=== PATIENT | female | born 2005 | race Caucasian/White ===

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

== ENCOUNTER 2025-08-26 10:43 | Outpatient (REF) | payer BC, SELFPAY ==
[2025-08-26 16:13] LABS: Appearance Urine Clear; Glucose Urine UA Negative (Negative); PH 8.5 (5.0-9.0); Specific Gravity - Urine 1.020 (1.005-1.025); UMIC TRIGGER UACC YES
[2025-08-26 16:16] LABS: UACC Culture Trigger YES
[2025-08-26 17:22] LABS: Bacterial Vaginosis PCR NEGATIVE (Negative); Candida Group PCR NOT DETECTED (Not Detect); Candida glab krusei PCR NOT DETECTED (Not Detect); Trichomonas vaginalis PCR NOT DETECTED (Not Detect)
[2025-08-26 17:55] LABS: CT PCR NOT DETECTED (Not Detect.); NG PCR NOT DETECTED (Not Detect.)
== END 2025-08-26 10:44 | disposition home or self-care (01) ==
LOC: HO.LAB 10:43
PROVIDERS: PCP Nurse Practitioner Primary Care; Visit Provider Nurse Practitioner Family
DX: N76.0 Acute vaginitis (principal); Z20.2 Contact with and (suspected) exposure to infections with a predominantly sexual mode of transmission
CPT/HCPCS: 81001; 81003; 81515; 87086; 87491; 87591

== ENCOUNTER 2025-08-26 10:43 | Outpatient (AMB) | payer BC, SELFPAY ==
[2025-08-26 11:51] VITALS: BP 104/60; PULSE 85; TEMP 36.4; O2SAT 94; BMI 23.0
--- NOTE | 2025-08-26 11:51 | MHC.OFFWIV ---
Intake Vital Signs 08/26/25 11:51 Height 5 ft 5 in Weight 138 lb BMI 23.0 BP 104/60 Blood Pressure Location Rt brachial Position Sitting Pulse 85 Pulse Source Pulse Oximeter Temp 97.5 F Temp Source Oral Pulse Oximetry (%) 94 Oxygen Delivery Method Room Air Intake Visit Reasons: ep possible uti Intake Note: pt presents with changes to menses, vaginal dryness, burning with voiding, bladder pressure, discomfort with walking. negative test at doctors office last week. Patient Tobacco Use Status: Former Tobacco user Allergies amoxicillin Allergy (Mild, Verified 08/26/25 12:01) hives doxycycline Allergy (Mild, Verified 08/26/25 12:01) Nausea clavulanic acid (From Augmentin) Adverse Reaction (Mild, Verified 08/26/25 12:02) Hives Medication List - Last Reconciled 08/26/25 by Emilia Angelo NP cetirizine 10 mg PO DAILY PRN clotrimazole-betamethasone 1-0.05 % 1 appl topical BID 2 weeks dextroamphetamine-amphetamine 15 mg ER 25 mg PO DAILY@0900 dextroamphetamine-amphetamine 20 mg 1 tab PO DAILY PRN fluoxetine 10 mg PO DAILY gabapentin orally 300mg am, 600mg pm; hydroxyzine HCl 25 mg PO TID PRN levonorgestrel-ethinyl estrad 0.15 mg-30 mcg (91) (Introvale) 1 tab PO DAILY lorazepam 0.5 mg PO BEDTIME omeprazole 20 mg PO ONCE potassium chloride ER 30 mEq PO BID rizatriptan mg PO sennosides (senna) 8.6 mg PO DAILY PRN trazodone 25 mg PO BEDTIME PRN tretinoin 0.05% appl topical Q OTHER DAY PRN Do you need a note to return to daycare/school/sports/work: Yes HPI HPI Comments History of Present Illness Details 20 y/o Female patient who presents to the walk in clinic with c/o UTI symptoms for about a week now. Reports Vaginal burning, Dysuria, Vaginal itching and Bladder pressure. She is due to have her Menses this week - but late. She is sexually active with a Male partner sometimes condoms. She tested Negative last week at her PCP visit. She just started her SHANTI Yesterday (Tuesday) and has not sexual encounter for 1 week now. 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 [facility] Medical History (Updated 08/26/25 @ 12:47 by Emilia Angelo NP) Vaginitis and vulvovaginitis MDD (major depressive disorder), recurrent episode, moderate Anorexia nervosa, binge eating/purging type Bulimia nervosa, purging type Small fiber neuropathy Raynauds disease Gastroparesis IBS (irritable bowel syndrome) MDD (major depressive disorder) Social History Household Members: Family Housing: House Do you presently have visiting nurse or other home services: No Patient Tobacco Use Status: Former Tobacco user Substance Use Type: Marijuana Advance Directives Date on File: 02/15/24 service: No Review of Systems Const All systems reviewed & are unremarkable except as noted in HPI and below Physical Exam Vital Signs: Last Vital Signs Temp 97.5 F 08/26/25 11:51 Pulse 85 08/26/25 11:51 BP 104/60 08/26/25 11:51 Pulse Ox 94 08/26/25 11:51 Oxygen Delivery Method Room Air 08/26/25 11:51 BMI result Body Mass Index 23.0 Const General: no acute distress Nutritional Appearance: thin Orientation/consciousness: patient oriented x3 General: Yes no CVA tenderness External Female Exam: erythema and externally tender Speculum Exam - Vagina: normal vaginal discharge and tenderness Speculum Exam - Cervix: Cervical os open, Nulliparous cervix present and nontender Bimanual exam- vagina & uterus: No Cervical tenderness present OB/external & speculum: Cervical os open Back/Spine/Pelvis Back: no CVA tenderness Neuro General: patient oriented x3, gait normal and moves all extremities Psych Speech and movement: Normal speech and movement present Results AMB Urinalysis, Automated UA Leukoctes 15 Carlos/uL Last Edit by Navjot Cat CMA on 08/26/25 12:25 UA Nitrite Negative Last Edit by Navjot Cat CMA on 08/26/25 12:25 UA Urobilinogen 0.2 mg/dL Last Edit by Navjot Cat CMA on 08/26/25 12:25 UA Protein 0 mg/dL Last Edit by Navjot Cat CMA on 08/26/25 12:25 UA pH 8.0 Last Edit by Navjot Cat CMA on 08/26/25 12:25 UA Blood 10 Diomedes/uL Last Edit by Navjot Cat CMA on 08/26/25 12:25 UA Specific [place] 1.010 Last Edit by Navjot Cat CMA on 08/26/25 12:25 UA Ketone Negative Last Edit by Navjot Cat CMA on 08/26/25 12:25 UA Bilirubin 0 mg/dL Last Edit by Navjot Cat CMA on 08/26/25 12:25 UA Glucose 0 mg/dL Last Edit by Navjot Cat CMA on 08/26/25 12:25 Results Reviewed Results Reviewed: Laboratory Last Values Urine pH (Auto) 8.0 08/26/25 12:04 Specific [place] (Auto) 1.010 08/26/25 12:04 Urine Protein (Auto) 0 mg/dL 08/26/25 12:04 Glucose (UA)(Auto) 0 mg/dL 08/26/25 12:04 Urine Ketones (Auto) Negative 08/26/25 12:04 Urine Blood (Auto) 10 Diomedes/uL 08/26/25 12:04 Urine Nitrite (Auto) Negative 08/26/25 12:04 Urine Bilirubin (Auto) 0 mg/dL 08/26/25 12:04 Urine Urobilinogen (Auto) 0.2 mg/dL 08/26/25 12:04 Leukocyte Esterase (Auto) 15 Carlos/uL 08/26/25 12:04 Assessment & Plan Assessment & Plan (1) Vaginitis and vulvovaginitis: Code(s): N76.0 - Acute vaginitis Plan: Urinalysis + 15 LEUK , Negative NIT and Positive Blood. Will send Urine for C&S. There is Redness and irritation externally vaginal skin - Patient wears Panty Liners due to Urine leakage. Ordered Cream to be used on the Outside Vagina. Ordered NG/CT and bateria vaginal Panel. Will Hold Tx for now Until Results return. Orders: Orders CT NG by PCR Vag/Cerv Today N76.0 - Acute vaginitis Bacterial Vaginosis Panel Today N76.0 - Acute vaginitis UA CC w/rflx Micro + Cult Today N76.0 - Acute vaginitis AMB Urinalysis Automated Today Z13.9 - Encounter for screening, unspecified Medications: New clotrimazole-betamethasone 1-0.05 % 1 appl topical BID 15 grams 1RF 2 weeks N76.0 - Acute vaginitis Coding Level of Care Code Est Pt Level 4 (12620) Diagnoses Vaginitis and vulvovaginitis N76.0 Time Spent (min) 20
--- OUTSIDE RECORDS SUMMARY | 2025-08-26 12:51 | XMS_ITS | Clinical Summary ---
Author Organization [facility] Address [address] [place] [address] Phone Care Team Providers Care Utilities Service Investigator Name Role Phone Navjot Barrett Primary Care Provider [phone] Navjot Barrett Unavailable Social History Tobacco Use Types Packs/Day Years Used Date Smoking Tobacco: Never Assessed Comments Unknown Sex and Gender Information Value Date Recorded Sex Assigned at Not on file Legal Sex Female 3:57 AM EDT Gender Identity Not on file Sexual Orientation Not on file Last Filed Vital Signs Vital Sign Reading Time Taken Comments Blood Pressure 95/61 01/31/2024 4:04 AM EDT Pulse 64 01/31/2024 4:04 AM EDT Temperature - - Respiratory Rate 16 01/31/2024 4:04 AM EDT Oxygen Saturation 100% 01/31/2024 4:04 AM EDT Inhaled Oxygen Concentration - - Weight 56.4 kg (124 lb 5.4 oz) 01/30/2024 10:55 PM EDT Height - - Body Mass Index - - Plan of Treatment Health Maintenance Due Date Last Done Comments Chlamydia and Gonorrhea Screening 2005 HIV Screening 2005 MMR Vaccines (1 of 1 - Stand roshan series) 2006 DTaP/Tdap/Td Vaccines (1 - Tdap) 2012 Varicella Vaccines (1 of 2 - 13+ 2-dose series) 2018 HPV Vaccines (1 - 3-dose series) 2020 Meningococcal B Vaccine (1 o f 2 - Standard) 2021 Hepatitis C Screening 2023 Hepatitis B Vaccines (1 of 3 - 19+ 3-dose series) 2024 Influenza Vaccine (#1) 2025 Anemia Screening 01/30/2029 01/31/2024 HIB Vaccines Aged Out No longer eligi ble based on patient's age to complete this topic Hepatitis A Vaccines Aged Out No long er eligible based on patient's age to complete this topic IPV Vaccines Aged Out No longer eligi ble based on patient's age to complete this topic Meningococcal Vaccine Aged Out No harini colin eligible based on patient's age to complete this topic Pneumococcal Vaccine: Pediat rics (0 to 5 Years) and At-Risk Patients (6 to 49 Years) Aged Out No longer eligi ble based on patient's age to complete this topic Rotavirus Vaccines Aged Out No longer eligible based on patient's age to complete this topic Procedures Procedure Name Priority Date/Time Associated Diagnosis Comments CBC Routine 01/31/2024 3:12 AM EDT from Last 3 Months or Most Recently Relevant to Health Maintenance Results * (ABNORMAL) CBC (01/31/2024 3:12 AM EDT) RDW 11.9 11.9 - 14.8 % [facility] MPV 9.4(L) 9.6 - 11.9 fL [facility] nRBC 0.0 0.0 - 0.0 /100 WBC [facility] NRBC # 0.00 0.00 - 0.00 K cells/uL [facility] WBC 6.60 4.94 - 10.04 K cells/uL [facility] MCH 30.8 25.7 - 31.2 pg [facility] MCV 84.1 80.7 - 93.7 fL [facility] RBC 4.54 4.03 - 4.91 M cells/uL [facility] MCHC 36.6(H) 31.3 - 34.0 g/dL [facility] Hemoglobin 14.0 11.4 - 14.8 g/dL [facility] Platelets 236 199 - 352 K cells/uL [facility] Hematocrit 38.2 35.5 - 44.6 % [facility] 01/31/2024 3:12 AM EDT 01/31/2024 3:12 AM EDT us Doris Morris MD LAB BLOOD ORDERABLE S Final Result [facility] [address] [place] [address], from Last 3 Months or Most Recently Relevant to Health Maintenance Care Teams Utilities Service Investigator Relationship Specialty Start Date End Date Navjot Barrett [address] [facility] [place] [address] PCP - General 02/09/21 Navjot Barrett [address] [facility] [place] [address] PCP - Clinical PCP 02/09/21
== END 2025-08-26 12:54 | disposition home or self-care (01) ==
PROVIDERS: PCP Nurse Practitioner Primary Care; Visit Provider Nurse Practitioner Family
DX: Z13.9 Encounter for screening, unspecified (principal); N76.0 Acute vaginitis